=== PATIENT | female | born 1985 | race Caucasian/White ===

== ENCOUNTER 2017-01-16 09:26 | Emergency (ER) | payer BC, OTHER ==
[2017-01-16 10:11] VITALS: BP 141/73
--- NOTE | 2017-01-16 10:14 | EDM.PDOC ---
ED HPI GENERAL MEDICAL PROBLEM - General Chief Complaint: General Stated Complaint: needle stick Time Seen by Provider: 01/16/17 09:30 Source of Information: Reports: Patient - History of Present Illness INITIAL COMMENTS - FREE TEXT/NARRATIVE: The patient presents to the ER after a needlestick at work. 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 She states that she squeezed the finger following the stick and there was some bleeding, she then washed hands copiously with warm water and soap. She then cleaned the finger with Chlorhexidine. The source patient does not have known HIV, Hepatitis B, or Hepatitis C. However, HIV, Hepatitis B, and Hepatitis C labs will be drawn and sent for the patient today. The patient denies other symptoms or complaints. 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 ED EXAM, GENERAL - Physical Exam Exam: See Below Exam Limited By: No Limitations General Appearance: Alert, WD/WN, No Apparent Distress Eye Exam: Bilateral Eye: EOMI, Normal Inspection, PERRL Ears: Normal External Exam, Normal Canal, Hearing Grossly Normal, Normal TMs Ear Exam: Bilateral Ear: Auricle Normal, Canal Normal, TM normal Nose: Normal Inspection, Normal Mucosa, No Blood Throat/Mouth: Normal Inspection, Normal Lips, Normal Teeth, Normal Gums, Normal Oropharynx, No Airway Compromise Head: Atraumatic, Normocephalic Neck: Normal Inspection, Supple, Non-Tender, Full Range of Motion. No: Lymphadenopathy (L), Lymphadenopathy (R), Tender Lateral, Tender Midline Respiratory/Chest: No Respiratory Distress, Lungs Clear, Normal Breath Sounds, No Accessory Muscle Use, Chest Non-Tender Cardiovascular: Normal Peripheral Pulses, Regular Rate, Rhythm, No Edema, No Gallop, No Murmur, No Rub GI/Abdominal: Normal Bowel Sounds, Soft, Non-Tender, No Organomegaly, No Distention Back Exam: Normal Inspection, Full Range of Motion, CVA Tenderness (L), CVA Tenderness (R) Extremities: Normal Inspection, Normal Range of Motion, Non-Tender, No Pedal Edema, Normal Capillary Refill Neurological: Alert, Oriented, CN II-XII Intact, Normal Cognition, Normal Gait, Normal Reflexes, No Motor/Sensory Deficits Psychiatric: Normal Affect, Normal Mood Skin Exam: Warm, Dry, Intact, Normal Color, No Rash, Other (Right index finger bleeding coagulated. Cannot see needlestick injury currently. No erythema, calor , induration, or fluctuance. No pain on palpation. ) Lymphatic: No Adenopathy Course - Orders/Labs/Meds Orders: Active Orders 24 hr Category Date Time Status HEPATITIS B SURF AB IMMUNE ST [REF] Routine Lab 01/16/17 10:05 Ordered HEPATITIS C AB [REF] Stat Lab 01/16/17 09:55 Ordered HEPATITIS C VIR RNA QUANT PCR [REF] Stat Lab 01/16/17 09:55 Ordered HIV 1,2 AB/AG COMBO SCREEN [REF] Routine Lab 01/16/17 10:05 Ordered Departure - Departure Time of Disposition: 10:00 Disposition: Home, Self-Care 01 Clinical Impression: Needle stick injury of finger of right hand Qualifiers: Encounter type: initial encounter Qualified Code(s): S61.239A - Puncture wound without foreign body of unspecified finger without damage to nail, initial encounter; W27.3XXA - Contact with needle (sewing), initial encounter - Discharge Information Referrals: Adrien Lemos MD [Primary Care Provider] - - My Orders Last 24 Hours: My Active Orders 01/16/17 09:55 HEPATITIS C AB [REF] Stat HEPATITIS C VIR RNA QUANT PCR [REF] Stat 01/16/17 10:05 HEPATITIS B SURF AB IMMUNE ST [REF] Routine HIV 1,2 AB/AG COMBO SCREEN [REF] Routine - Assessment/Plan Last 24 Hours: My Active Orders 01/16/17 09:55 HEPATITIS C AB [REF] Stat HEPATITIS C VIR RNA QUANT PCR [REF] Stat 01/16/17 10:05 HEPATITIS B SURF AB IMMUNE ST [REF] Routine HIV 1,2 AB/AG COMBO SCREEN [REF] Routine Assessment:: Needlestick of right index finger. Plan: 1. Will have source patient present and will test HIV Rapid, HIV 1 and 2 Antibody with reflex, Hepatitis B Surface Antigen and Surface Antibody, and Hepatitis Hepatitis C Antibody and Hepatitis C RNA Quantitative PCR. 2. Arya blood on patient and will send HIV 1 and 2 Antibody with Reflex, Hepatitis B Surface Antibody, and Hepatitis C Antibody and Hepatitis C RNA Quantitative PCR. 3. Will have patient apply Triple Antibiotic Ointment to needle stick and sterile bandage. 4. Follow up with PCP for next available to discuss results and care plan.
== END 2017-01-16 10:10 | disposition home or self-care (01) ==
LOC: LL.ED 09:26
DX: S61.230A Puncture wound without foreign body of right index finger without damage to nail, initial encounter (principal); F41.9 Anxiety disorder, unspecified; F32.9 Major depressive disorder, single episode, unspecified; Z88.1 Allergy status to other antibiotic agents; Z88.8 Allergy status to other drugs, medicaments and biological substances; Z87.891 Personal history of nicotine dependence; W27.3XXA Contact with needle (sewing), initial encounter
CPT/HCPCS: 36415; 81025; 86703; 86706; 86803; 87522; 99283; G0475

== ENCOUNTER 2020-06-22 10:07 | Day surgery (SDC) | payer BC ==
[~2020-06-22 10:07] MED LIST: Lactated Ringers 1,000 ML IV SCH; Midazolam 1 MG/ML 2 ML SDV ONE; Propofol 200 MG/20 ML SDV ONE
--- NOTE | 2020-06-22 12:05 | PCM.PN ---
- General Info Date of Service: 06/22/20 - Review of Systems Systems Review Comment:: 34-year-old female here for excision of a right breast mass. The site of the mass is confirmed with the patient and marked. I have discussed the proposed operative procedure with the patient. Her questions were answered and she agrees to proceed excepting risks. - Patient Data Vitals - Most Recent: Last Vital Signs Temp 98.5 F 06/22/20 10:38 Pulse 63 06/22/20 10:38 Resp 18 06/22/20 10:38 BP 98/56 L 06/22/20 10:38 Pulse Ox 97 06/22/20 10:38 Weight - Most Recent: 97.976 kg Lab Results Last 24 Hours: Laboratory Results - last 24 hr 06/22/20 Range/Units 10:24 Urine HCG, Qual Negative Med Orders - Current: Current Medications Lactated Ringer's (Ringers, Lactated) 1,000 mls @ 125 mls/hr IV ASDIRECTED JENNY Last Admin: 06/22/20 10:51 Dose: 125 mls/hr Documented by: Discontinued Medications Midazolam HCl (Versed 1 Mg/Ml) Confirm Administered Dose 4 mg .ROUTE .STK-MED ONE Stop: 06/22/20 08:21 Propofol (Diprivan 20 Ml) Confirm Administered Dose 600 mg .ROUTE .STK-MED ONE Stop: 06/22/20 08:22 - Patient Data Lab Results Last 24 hrs: Laboratory Results - last 24 hr 06/22/20 Range/Units 10:24 Urine HCG, Qual Negative Sepsis Event Note - Focused Exam Vital Signs: Vital Signs Temp Pulse Resp BP Pulse Ox 06/22/20 10:38 98.5 F 63 18 98/56 L 97 - Problem List Review Problem List Initiated/Reviewed/Updated: Yes - Assessment Assessment:: Right breast mass - Plan Plan:: Excision of right breast mass
[2020-06-22] MEDS ORDERED: ceFAZolin 1 GM Vial ONE (12:15)
[2020-06-22] MEDS ORDERED: Midazolam 1 MG/ML 2 ML SDV ONE (12:15)
[2020-06-22] MEDS ORDERED: Propofol 200 MG/20 ML SDV ONE (12:15)
[2020-06-22] MEDS ORDERED: Bupivacaine 0.25%/EPINEPHrine 1:200,000 30 ML SDV INJECT ONE (12:27)
[2020-06-22] MEDS ORDERED: Bacitracin Oint 1 GM U/D Packet TOP ONE (12:40)
--- NOTE | 2020-06-22 12:50 | PCM.OPNOTE ---
- General Post-Op/Procedure Note Date of Surgery/Procedure: 06/22/20 Operative Procedure(s): Excision right breast mass Findings: Fatty appearing mass medial aspect right breast Pre Op Diagnosis: Right breast mass Post-Op Diagnosis: Same Anesthesia Technique: Local, MAC Primary Surgeon: Darek Griffith Pathology: Right breast mass EBL in mLs: 5 Complications: None Condition: Good
--- NOTE | 2020-06-22 13:31 | OR ---
Date of Procedure: 06/22/2020 PREOPERATIVE DIAGNOSIS: Right breast mass. POSTOPERATIVE DIAGNOSIS: Right breast mass. OPERATION PERFORMED: Excision of right breast mass. INDICATIONS FOR SURGERY: This 34-year-old female has developed a palpable mass in the medial aspect of her right breast. This has been slowly enlarging. An ultrasound has confirmed this to be a solid mass and she comes for excision. FINDINGS: In the medial aspect of the right breast, there is noted in the breast tissue near the skin, a 3 x 2 cm well marginated mass. It has the gross appearance consistent with fatty tissue. There was no indication of any invasion of the surrounding tissue. Adjacent to this was some lobular tissue consistent with fatty tissue, which was also removed. The remainder of the breast tissue in this area appears normal. DESCRIPTION OF PROCEDURE: The patient was taken to the operating room. She was given intravenous sedation and the right breast was sterilely prepped and draped. The area of the mass had been previously marked on the skin and this region was infiltrated with Marcaine. A transverse incision was then made over the palpable and previously marked mass and dissection proceeded down into the breast tissue until the mass was identified. It was then carefully from the surrounding tissue and removed intact. Additional inspection revealed some lobular fatty-appearing tissue in the lateral aspect of the wound, and this was also removed with cautery dissection. Good hemostasis was maintained during the procedure. Careful inspection showed no sign of bleeding or any other complication. The wound was irrigated and then closed approximating the subcutaneous tissue with interrupted 4-0 Vicryl and the skin with a running 4-0 Vicryl subcuticular stitch. Benzoin and Steri-Strips were applied followed by antibiotic ointment and sterile dressing. The patient was then taken from the operating room in satisfactory condition. ESTIMATED BLOOD LOSS: 5 mL. COMPLICATIONS: None. PROGNOSIS: Good. DEBBIE Griffith MD /[id number]
[2020-06-22 15:04] VITALS: BP 97/43; PULSE 61
== END 2020-06-22 13:52 | disposition home or self-care (01) ==
LOC: LL.SDS 10:07
PROVIDERS: ATTEND Surgery
DX: D17.1 Benign lipomatous neoplasm of skin and subcutaneous tissue of trunk (principal); Z01.812 Encounter for preprocedural laboratory examination; Z20.822 Contact with and (suspected) exposure to COVID-19; Z87.891 Personal history of nicotine dependence; Z88.1 Allergy status to other antibiotic agents; Z88.8 Allergy status to other drugs, medicaments and biological substances
CPT/HCPCS: 00404; 81025; J0690; J2250; J2704; J7120; U0002

== ENCOUNTER 2021-06-14 09:57 | Day surgery (SDC) | payer BC ==
[~2021-06-14 09:57] MED LIST changes: -Lactated Ringers 1,000 ML IV SCH
[2021-06-14] MEDS ORDERED: Sodium Chloride 0.9% 10 ML Syringe FLUSH PRN (10:30)
[2021-06-14] MEDS: Lactated Ringers 1,000 ML IV SCH (10:44)
[2021-06-14] MEDS ORDERED: Propofol 200 MG/20 ML SDV ONE (11:08)
[2021-06-14] MEDS ORDERED: Glycopyrrolate 0.2 MG/ML SDV ONE (11:08)
[2021-06-14] MEDS ORDERED: Lidocaine 2% 5 ML SDV ONE (11:08)
[2021-06-14] MEDS ORDERED: Midazolam 1 MG/ML 2 ML SDV ONE (11:08)
[2021-06-14 14:58] VITALS: BP 143/81; PULSE 63
== END 2021-06-14 12:07 | disposition home or self-care (01) ==
LOC: LL.SDS 09:57
PROVIDERS: ATTEND Surgery
DX: K21.9 Gastro-esophageal reflux disease without esophagitis (principal); K44.9 Diaphragmatic hernia without obstruction or gangrene; E66.01 Morbid (severe) obesity due to excess calories; Z87.891 Personal history of nicotine dependence; Z88.8 Allergy status to other drugs, medicaments and biological substances; Z79.899 Other long term (current) drug therapy; Z68.38 Body mass index [BMI] 38.0-38.9, adult
CPT/HCPCS: 00731; J2250; J2704; J3490; J7120

== ENCOUNTER 2021-06-27 16:25 | Emergency (ER) | payer BC ==
[2021-06-27 16:29] VITALS: BP 126/49; PULSE 93
[2021-06-27] MEDS ORDERED: Sodium Chloride 0.9% 10 ML Syringe FLUSH PRN (16:38)
[2021-06-27] MEDS: Sodium Chloride 0.9% 1,000 ML IV SCH ×2 (16:51→18:01)
[2021-06-27] MEDS: Ondansetron 4 MG/2 ML SDV IVPUSH ONE (16:53)
[2021-06-27 17:09] LABS: ANION GAP 12.8 meq/L (7-15); CHLORIDE,CL 101 mmol/L (98-107); SODIUM,NA 139 mmol/L (136-145)
[2021-06-27] MEDS: Metoclopramide 10 MG/2 ML SDV IVPUSH ONE (17:43)
[2021-06-27] MEDS: Ketorolac 30 MG/ML SDV IVPUSH ONE (17:43)
[2021-06-27] MEDS: Famotidine 20 MG/2 ML SDV IVPUSH ONE (17:44)
== END 2021-06-27 19:00 | disposition home or self-care (01) ==
LOC: LL.ED 16:25 → SUPCPDRO 16:25 → LL.ED 19:00
DX: R10.11 Right upper quadrant pain (principal); R10.13 Epigastric pain; R19.7 Diarrhea, unspecified; R11.2 Nausea with vomiting, unspecified; Z88.0 Allergy status to penicillin; Z20.822 Contact with and (suspected) exposure to COVID-19
CPT/HCPCS: 36415; 80053; 81001; 81025; 83690; 85025; 86140; 96374; 96375; 99284; 99284-25; J1885; J2405; J2765; J3490; J7030; U0002